=== PATIENT | female | born 2000 | race Caucasian/White ===

== ENCOUNTER 2020-04-05 09:30 | Emergency (ER) | payer BC, SELFPAY ==
[2020-04-05 09:41] VITALS: BP 116/72; PULSE 68; RESP 18; TEMP 36.8; O2SAT 99; BMI 36.6
--- NOTE | 2020-04-05 09:59 | ED_ITS ---
HPI - Abdominal Pain General: Chief Complaint: Abdominal Pain Stated Complaint: L UPPER AB PAIN Time Seen by Provider: 04/05/20 09:46 Source: patient Mode of arrival: ambulatory Limitations: no limitations History of Present Illness: HPI narrative: 20-year-old female patient presents to the emergency department with 3-day history of epigastric and right upper quadrant abdominal pain. She reports decreased appetite, eating makes pain worse. She states has tried [id number] use of Tums and Tylenol. Describes pain as a burning sensation. She also states 3-day history of diarrhea with nausea. Denies vomiting. Able to tolerate oral fluids. History of cholecystectomy. MD elicited complaint: abdominal pain Pertinent past history: other (Gallbladder disease) Onset (ago): day(s) (3) Pain Consistency: intermittent Location: Epigastric and RUQ Pain scale (0-10): 4 Quality: cramping and burning Radiation: RUQ Exacerbating factors: eating Relieving factors: nothing Associated Symptoms: Reports change in bowel habits (Diarrhea), diarrhea, heartburn and nausea; Denies belching, chills, dysuria, fever(s), hematochezia, hematemesis and vomiting Treatments prior to arrival: prescription analgesics and antacids Review of Systems General: Reports: 10 or more systems reviewed and unremarkable except in HPI and below Const: Denies: fever(s), chills or diaphoresis Eyes: Denies: blurry vision or eye redness ENMT: Denies: throat pain, dental pain or disequilibrium Card: Denies: chest pain, palpitations or irregular heart rhythm Resp: Denies: dyspnea, productive cough, non-productive cough or wheezing GI: Reports: abdominal pain, nausea, heartburn, diarrhea and change in bowel habits (Diarrhea); Denies: vomiting, hematemesis, belching or hematochezia : Denies: difficulty voiding or dysuria Musc: Denies: neck pain, back pain or joint pain Skin/Breast: Denies: rash or pruritus Neuro: Denies: headache(s), weakness in extremities or behavioral changes Psych: Denies: anxiety or depression Chris/Lymph: Denies: easy bruising PFSH ED PFSH: Surgical History (Updated 04/05/20 @ 10:02 by GRIS Long) History of cholecystectomy Physical Exam Const: COMMON NORMALS: no acute distress, patient oriented x3, healthy appearing, alert and well nourished EXAM LIMITATIONS: no altered mental status and no physical limitations GENERAL APPEARANCE: cooperative, comfortable, well kempt, well developed and well hydrated; not anxious and not ill appearing NUTRITIONAL APPEARANCE: overweight ORIENTATION/CONSCIOUSNESS: Yes awake, Yes oriented to person, Yes oriented to place and Yes oriented to time HENMT: COMMON NORMALS: normocephalic, atraumatic, Normal external nose present and moist oral mucous membranes HEAD & SCALP: normal to inspection, normocephalic and atraumatic FACE & SINUS: normal facial exam and face symmetric NOSE: Normal external nose present and No nasal polyps present MOUTH: Normal oral and palatal mucosa present and tongue normal THROAT: posterior oropharynx normal and uvula midline Eye: COMMON NORMALS: Equal, round and reactive pupils present and EOMs intact bilaterally GENERAL EYE: appearance normal, both eyes and all related structures PUPIL: Yes Equal, round and reactive pupils present Neck/C-Spine: COMMON NORMALS: full ROM, no lymphadenopathy and supple GENERAL: Yes normal visual inspection and Yes trachea midline CERVICAL SPINE: Yes cervical ROM normal Lymph: LYMPHATIC: no lymphadenopathy noted Chest: COMMONS NORMALS: normal inspection of the chest and normal palpation of entire chest wall Resp: COMMON NORMALS: normal respiratory effort, No retractions, No use of accessory muscles and clear to auscultation bilaterally EFFORT & INSPECTION: Yes able to speak in complete sentences, No labored, No Actively coughing and No retractions AUSCULTATION: clear to auscultation bilaterally, no wheezes and lung sounds not diminished Cardio: COMMON NORMALS: regular rate, regular rhythm, S1 normal heart sound present and S2 normal heart sound present RATE: regular rate RHYTHM: regular rhythm HEART SOUNDS: S1 normal heart sound present and S2 normal heart sound present GI: COMMON NORMALS: Normal to inspection, nondistended, normoactive bowel sounds present and Soft to palpation INSPECTION: Yes normal to inspection, No abdominal wall ecchymosis, No abdominal distension, No incision, Yes central obesity and No GI erythema present AUSCULTATION: Yes normoactive bowel sounds PALPATION: Yes Soft to palpation and Yes Tenderness to palpation present (GI) Details: RUQ and other (Mid epigastric) : COMMON NORMALS: Yes no CVA tenderness BLADDER/KIDNEY EXAM: Yes no CVA tenderness Back/Pelvis: COMMON NORMALS: no CVA tenderness and thoracic and lumbar spine normal to inspection Extremity: COMMON NORMALS: normal to inspection and capillary refill normal Neuro: COMMON NORMALS: patient oriented x3 and no focal motor deficits SENSORIUM/ORIENTATION: Yes alert, Yes oriented to person, Yes oriented to place and Yes oriented to time Psych: COMMON NORMALS: mental status grossly normal, Normal thought process present and cooperative APPEARANCE: Yes well kempt ACTIVITY/MOTOR BEHAVIOR: Yes appropriate eye contact THOUGHT PROCESS: Normal thought process present Skin: COMMON NORMALS: no rashes or lesions noted and turgor normal GENERAL SKIN EXAM: no rashes or lesions noted and turgor normal Course Vital Signs: Vital signs: Vital Signs Temperature 98.2 F 04/05/20 09:41 Pulse Rate 68 04/05/20 10:33 Respiratory Rate 18 04/05/20 10:33 Blood Pressure 108/57 04/05/20 10:33 Pulse Oximetry 99 04/05/20 10:33 MDM - Abdominal Pain MDM Narrative: Medical decision making narrative: 20-year-old female patient presents to the emergency department with complaints of abdominal pain x3 days. She reports burning sensation in the epigastric and right upper quadrant, gallbladder right upper quadrant negative for acute etiology. She received Mylanta and Zofran during her stay in the ED. Reports pain resolved, nausea resolved, able to tolerate p.o. fluids here in the ED. White blood count mar ginally elevated, 13.8 thousand. Chemistry unremarkable, lipase normal, urinalysis with positive leukoesterase bacteria and blood. Will treat for urinary tract infection, patient advised to follow-up with her primary care provider next week due to fatty liver disease that was appreciated on right upper quadrant ultrasound today. She was also counseled to return to the emergency department she developed worsening abdominal pain, vomiting despite use of Zofran, verbalized understanding and would like to go home since feeling better. Differential Diagnosis: Differential diagnosis abdominal pain: Likely abdominal pain and small bowel obstruction Lab Data: Labs: Lab Results 04/05/20 04/05/20 04/05/20 Range/Units 09:54 09:54 10:24 WBC 13.4 H (4.0-10.0) 10^3/ uL RBC 4.80 (4.1-5.3) 10^6/u L Hgb 13.9 (11.5-15.3) g/dL Hct 43.2 (37.0-47.0) % MCV 90.0 (81-99) fL MCH 29.0 (28.0-34.0) pg MCHC 32.2 (30.0-36.0) g/dL RDW 12.2 (12.1-15.1) % Plt Count 294 (130-400) 10^3/c mm MPV 9.6 (7.4-10.4) fL Neut % (Auto) 70.6 % Lymph % (Auto) 24.1 % [place] % (Auto) 3.6 % Eos % (Auto) 0.9 % Baso % (Auto) 0.4 % Neut # (Auto) 9.49 H (1.8-7.7) 10^3/u L Lymph # (Auto) 3.2 (0.8-4.8) 10^3/u L [place] # (Auto) 0.5 (0.2-0.9) 10^3/u L Eos # (Auto) 0.1 (0.0-0.8) 10^3/u L Baso # (Auto) 0.1 (0.0-0.1) 10^3/u L Nucleated RBC % (a uto) 0 % Nucleated RBCs # 0.0 /100WBC Sodium (136-145) mmol/L Potassium (3.5-5.1) mmol/L Chloride (98-107) mmol/L Carbon Dioxide (22-29) mmol/L Anion Gap (5-19) BUN (6-20) mg/dL Creatinine (0.5-0.9) mg/dL GFR Calculation (90-130) mL/min Glucose (65-115) mg/dL Calculated Osmolal ity (285-295) mOsm/k g Calcium (8.5-10.5) mg/dL Total Bilirubin (0.15-1.2) mg/dL AST (0-32) U/L ALT (0-33) U/L Alkaline Phosphata se (35-105) IU/L Total Protein (6.6-8.7) g/dL Albumin (3.5-5.2) g/dL Globulin (1.3-4.6) g/dL Lipase (13-60) U/L Urine Color Yellow (Yellow) Urine Appearance Cloudy (CLEAR) Urine pH 6 (5-7) Ur Specific Gravit y 1.005 (1.005-1.030) Urine Protein Neg (Negative) Urine Glucose (UA) Norm (Normal) Urine Ketones Negative (Negative) Urine Blood 3+ H (Negative) Urine Nitrate Negative (Negative) Urine Bilirubin Neg (Negative) Urine Urobilinogen Norm (Negative) mg/dL Ur Leukocyte Mohini ase 1+ H (Negative) Urine RBC 0-4 H (0-2) /hpf Urine WBC 0-4 H (0-5) /hpf Ur Squamous Epith Cells 10-15 H (0-5) /hpf Amorphous Sediment Not Reportable Urine Bacteria 1+ H (NONE) /hpf Urine HCG, Qual Negative (Negative) 04/05/20 Range/Units 10:24 WBC (4.0-10.0) 10^3/ uL RBC (4.1-5.3) 10^6/u L Hgb (11.5-15.3) g/dL Hct (37.0-47.0) % MCV (81-99) fL MCH (28.0-34.0) pg MCHC (30.0-36.0) g/dL RDW (12.1-15.1) % Plt Count (130-400) 10^3/c mm MPV (7.4-10.4) fL Neut % (Auto) % Lymph % (Auto) % [place] % (Auto) % Eos % (Auto) % Baso % (Auto) % Neut # (Auto) (1.8-7.7) 10^3/u L Lymph # (Auto) (0.8-4.8) 10^3/u L [place] # (Auto) (0.2-0.9) 10^3/u L Eos # (Auto) (0.0-0.8) 10^3/u L Baso # (Auto) (0.0-0.1) 10^3/u L Nucleated RBC % (a uto) % Nucleated RBCs # /100WBC Sodium 138 (136-145) mmol/L Potassium 4.0 (3.5-5.1) mmol/L Chloride 105 (98-107) mmol/L Carbon Dioxide 26 (22-29) mmol/L Anion Gap 11.0 (5-19) BUN 10 (6-20) mg/dL Creatinine 0.7 (0.5-0.9) mg/dL GFR Calculation 105.6 (90-130) mL/min Glucose 99 (65-115) mg/dL Calculated Osmolal ity 285 (285-295) mOsm/k g Calcium 9.7 (8.5-10.5) mg/dL Total Bilirubin 0.3 (0.15-1.2) mg/dL AST 15 (0-32) U/L ALT 13 (0-33) U/L Alkaline Phosphata se 81 (35-105) IU/L Total Protein 6.9 (6.6-8.7) g/dL Albumin 4.3 (3.5-5.2) g/dL Globulin 2.6 (1.3-4.6) g/dL Lipase 34 (13-60) U/L Urine Color (Yellow) Urine Appearance (CLEAR) Urine pH (5-7) Ur Specific Gravit y (1.005-1.030) Urine Protein (Negative) Urine Glucose (UA) (Normal) Urine Ketones (Negative) Urine Blood (Negative) Urine Nitrate (Negative) Urine Bilirubin (Negative) Urine Urobilinogen (Negative) mg/dL Ur Leukocyte Mohini ase (Negative) Urine RBC (0-2) /hpf Urine WBC (0-5) /hpf Ur Squamous Epith Cells (0-5) /hpf Amorphous Sediment Urine Bacteria (NONE) /hpf Urine HCG, Qual (Negative) Imaging Data ^: US: Radiologist's impression: [address] [address] Ultrasound Report Signed Patient: WHITNEY GAUTHIER Unit #: [id number] : 2000 Age/Sex: 20 / F ADM Date: 04/05/20 Loc: ER Room/Bed: Attending Dr: Ordering Provider/Ordering MD: Andreia Pérez Date of Service: 04/05/20 Procedure(s): US abdomen limited 55767 Accession Number(s): [id number] Report Number: [id number] PROCEDURE INFORMATION: Exam: US Abdomen, Limited; Right Upper Quadrant Exam date and time: 04/05/2020 11:10 AM Age: 20 years old Clinical indication: Abdominal pain; Prior surgery; Surgery date: 6+ months; Surgery type: Cholecystectomy; Additional info: Ruq - ruq pain TECHNIQUE: Imaging protocol: US abdomen. Real time ultrasound with image documentation. Limited exam focused on the right upper quadrant. COMPARISON: No relevant prior studies available. FINDINGS: Liver: There is increased echogenicity of the liver consistent with fatty liver. No liver masses are seen. Gallbladder: Cholecystectomy. Common bile duct: Normal. No stones. No dilation. Pancreas: Most of the pancreas is obscured by bowel but the visualized portions are unremarkable. Right kidney: Normal. No mass. No hydronephrosis. Aorta: The abdominal aorta and inferior vena cava appear normal. US/US abdomen limited [id number] IMPRESSION: 1. Cholecystectomy. Normal bile ducts. 2. Fatty liver. Dictated By: Kulwinder Johnson Signed By: Kulwinder Johnson Signed Date/Time: 04/05/20 1204 DD/ 1203 Discharge Plan Discharge Patient Disposition: Home Clinical Impression: Fatty liver Gastritis Qualifiers: Gastritis type: unspecified gastritis Chronicity: acute Gastritis bleeding: without bleeding Qualified Code(s): K29.00 - Acute gastritis without bleeding Abdominal pain Qualifiers: Abdominal location: right upper quadrant Qualified Code(s): R10.11 - Right upper quadrant pain UTI (urinary tract infection) Qualifiers: Urinary tract infection type: acute cystitis Hematuria presence: with hematuria Qualified Code(s): N30.01 - Acute cystitis with hematuria Condition: Stable Prescriptions: New Zofran 4 mg tablet 4 mg PO Q4H 5 Days Qty: 14 RF: 0 Pepcid 20 mg tablet 20 mg PO BID Qty: 20 RF: 0 cefdinir 300 mg capsule 300 mg PO BID 7 Days Qty: 14 RF: 0 Discharge Orders: Discharge ED (Routine); Ordered 04/05/20 Ordered By: Andreia Pérez Discharge Diet: Advance as tolerated and Clear Liquid Discharge Activity: Limit activity as instructed Patient Instructions: Gastritis (ED), Urinary Tract Infection in Women (ED), Abdominal Pain (ED) Activity Restrictions/Additional Instructions: return to the Emergency department if you experience continued nausea and vomiting despite use of Zofran or if abdominal pain increases/worsens May continue TUMS or Mylanta as needed for burning sensation Follow-up with your primary care provider next week for emergency room visit follow-up. Clear liquid diet for the first 24 hours recommended, then advance to bland diet such as crackers, chicken noodle soup, avoid fried fatty greasy spicy foods for the next 72 hours or until symptoms improved Drink plenty of fluids Take antibiotics until all gone Coding Level of Care Code ED Hand Sample Maker for Jorge Jackson Exam Comprehensive
[2020-04-05] MEDS: ondansetron 4 MG Tablet PO (10:17)
[2020-04-05] MEDS: alum-mag-hydroxide-sime 30 mL UDC PO (10:17)
[2020-04-05 10:26] LABS: Add Urine Microscopic? YES; Bacteria Urine 1+ /hpf; Bilirubin Urine Neg (Negative); Blood Urine 3+ (Negative); Glucose Urine UA Norm (Normal); Leukocyte Esterase Urine 1+ (Negative); Nitrate Urine Negative (Negative); Protein Urine Neg (Negative); RBC Urine 0-4 /hpf (0-2); Specific Gravity, Urine 1.005 (1.005-1.030); Urine Appearance Cloudy (CLEAR); Urine Color Yellow (Yellow); Urobilinogen Urine Norm (Negative); WBC Urine 0-4 /hpf (0-5); pH Urine 6 (5-7)
[2020-04-05 10:33] VITALS: BP 108/57; PULSE 68; RESP 18; O2SAT 99
[2020-04-05 10:35] LABS: Ketones Urine Negative (Negative)
[2020-04-05 10:39] LABS: Basophils # 0.1 10^3/uL (0.0-0.1); Basophils % 0.4 %; Eosinophils # 0.1 10^3/uL (0.0-0.8); Eosinophils % 0.9 %; Hematocrit 43.2 % (37.0-47.0); Hemoglobin 13.9 g/dL (11.5-15.3); Lymphocytes # 3.2 10^3/uL (0.8-4.8); Lymphocytes % 24.1 %; Mean Corpuscular HGB Conc 32.2 g/dL (30.0-36.0); Mean Platelet Volume 9.6 fL (7.4-10.4); Monocytes # 0.5 10^3/uL (0.2-0.9); Monocytes % 3.6 %; Neutrophils # 9.49 10^3/uL (1.8-7.7); Neutrophils % 70.6 %; Nucleated Red Blood Cells % 0 %; Platelet Count 294 10^3/cmm (130-400); Red Cell Distribution Width 12.2 % (12.1-15.1); White Blood Count 13.4 10^3/uL (4.0-10.0)
--- NOTE | 2020-04-05 10:46 | USR_ITS ---
PROCEDURE INFORMATION: Exam: US Abdomen, Limited; Right Upper Quadrant Exam date and time: 04/05/2020 11:10 AM Age: 20 years old Clinical indication: Abdominal pain; Prior surgery; Surgery date: 6+ months; Surgery type: Cholecystectomy; Additional info: Ruq - ruq pain TECHNIQUE: Imaging protocol: US abdomen. Real time ultrasound with image documentation. Limited exam focused on the right upper quadrant. COMPARISON: No relevant prior studies available. FINDINGS: Liver: There is increased echogenicity of the liver consistent with fatty liver. No liver masses are seen. Gallbladder: Cholecystectomy. Common bile duct: Normal. No stones. No dilation. Pancreas: Most of the pancreas is obscured by bowel but the visualized portions are unremarkable. Right kidney: Normal. No mass. No hydronephrosis. Aorta: The abdominal aorta and inferior vena cava appear normal. US/US abdomen limited [id number] IMPRESSION: 1. Cholecystectomy. Normal bile ducts. 2. Fatty liver.
[2020-04-05 11:02] LABS: Alanine Aminotransferase 13 U/L (0-33); Albumin Level 4.3 g/dL (3.5-5.2); Alkaline Phosphatase 81 IU/L (35-105); Aspartate Amino Transferase 15 U/L (0-32); Blood Urea Nitrogen 10 mg/dL (6-20); Calcium 9.7 mg/dL (8.5-10.5); Carbon Dioxide 26 mmol/L (22-29); Chloride 105 mmol/L (98-107); Globulin 2.6 g/dL (1.3-4.6); Glomerular Filtration Rate 105.6 mL/min (90-130); Glucose 99 mg/dL (65-115); Lipase 34 U/L (13-60); Osmolality Calculated 285 mOsm/kg (285-295); Sodium 138 mmol/L (136-145); Total Bilirubin 0.3 mg/dL (0.15-1.2); Total Protein 6.9 g/dL (6.6-8.7)
[2020-04-05 12:17] VITALS: BP 112/62; PULSE 57; RESP 16; O2SAT 97
== END 2020-04-05 12:17 | disposition home or self-care (01) ==
PROVIDERS: Emergency Provider Nurse Practitioner Family
DX: K29.00 Acute gastritis without bleeding (principal); R10.11 Right upper quadrant pain; N30.01 Acute cystitis with hematuria; K76.0 Fatty (change of) liver, not elsewhere classified
CPT/HCPCS: 12345; 76705; 80053; 81001; 81025; 83690; 85025; 99281; 99283; Q0162

== ENCOUNTER → 2020-05-23 08:55 | Outpatient (BNVA) | payer BC, SELFPAY | PROVIDERS: Visit Provider Nurse Practitioner Women's Health | DX: N92.6 Irregular menstruation, unspecified (principal); Z30.017 Encounter for initial prescription of implantable subdermal contraceptive; E28.2 Polycystic ovarian syndrome | CPT/HCPCS: 84702 ==

== ENCOUNTER 2020-08-16 17:31 | Emergency (ER) | payer BC, SELFPAY ==
[2020-08-16 17:42] VITALS: BP 132/85; PULSE 94; RESP 17; TEMP 36.2; O2SAT 99; BMI 36.3
--- NOTE | 2020-08-16 18:00 | W.ED.GENADLT ---
HPI - General Adult General: Chief complaint: Abdominal Pain Stated complaint: LOWER ABD PAIN UNABLE TO KEEP DOWN ANYTHING Time Seen by Provider: 08/16/20 17:51 History of Present Illness: HPI narrative: Patient says she has been sick with nausea and vomiting last 3 days. Not able to keep much down. Then she says she has had some tenderness in her abdomen today. Which she did not have the last 2 days. She denies any vaginal discharge or other problems. She did start her menses today. Denies fever. Said her dougie had a history of having infections mainly yeast and that is been draining a bit more the last couple days. MD complaint: Nausea and vomiting Onset (ago): day(s) Location: abdomen Severity: mild Associated symptoms: Reports nausea and vomiting; Deny chest pain, dyspnea, headache(s) or rash Review of Systems Const: Denies: fever(s), chills or body aches Eyes: Denies: change in vision or blurry vision ENMT: Denies: throat pain or nasal congestion Card: Denies: chest pain or dyspnea on exertion Resp: Denies: dyspnea, productive cough or non-productive cough GI: Reports: nausea and vomiting Musc: Denies: extremity pain Skin/Breast: Reports: other (Says dougie has had some drainage); Denies: rash Neuro: Denies: headache(s) Psych: Denies: anxiety or depression Chris/Lymph: Denies: easy bruising PFSH ED PFSH: Medical History Chiari malformation GERD (gastroesophageal reflux disease) Navel cellulitis PCOS (polycystic ovarian syndrome) Surgical History History of cholecystectomy Status post brain surgery removed piece of the skull to help the chiari Family History Denies family history of Colon cancer Ovarian cancer Diabetes Heart disease Hypercholesteremia Breast cancer Hypertension Uterine cancer Thyroid disease Stroke Physical Exam Const: COMMON NORMALS: no acute distress, average body habitus and patient oriented x3 HENMT: COMMON NORMALS: normocephalic HEAD & SCALP: normal to inspection and normocephalic FACE & SINUS: normal facial exam Eye: COMMON NORMALS: conjunctivae normal GENERAL EYE: appearance normal, both eyes and all related structures CONJUNCTIVA: Yes conjunctivae normal Neck/C-Spine: COMMON NORMALS: no JVD Chest: COMMONS NORMALS: normal inspection of the chest Resp: COMMON NORMALS: normal respiratory effort and clear to auscultation bilaterally AUSCULTATION: clear to auscultation bilaterally Cardio: COMMON NORMALS: no JVD, regular rate and regular rhythm RATE: regular rate RHYTHM: regular rhythm GI: INSPECTION: Yes normal to inspection AUSCULTATION: Yes normoactive bowel sounds PALPATION: Yes Tenderness to palpation present (GI) Details: RLQ, RUQ and other (Periumbilical) Extremity: COMMON NORMALS: normal to inspection and full ROM Neuro: COMMON NORMALS: patient oriented x3 Skin: NARRATIVE SKIN EXAM: Bellybutton then having current drainage slight redness can, is slightly tender Course Vital Signs: Vital signs: Vital Signs Temperature 97.2 F L 08/16/20 17:42 Pulse Rate 73 08/16/20 20:36 Respiratory Rate 17 08/16/20 17:42 Blood Pressure 135/58 08/16/20 20:36 Pulse Oximetry 100 08/16/20 20:36 MDM - General Adult MDM Narrative: Medical decision making narrative: CT report included did not show any significant findings except mild cellulitis around the bellybutton and a right ovarian cyst which is consistent with the pain she has today. She said that her bellybutton cellulitis drainage problems occurred after she had her gallbladder removed 5 years ago and its happens intermittently. Patient instructed to contact surgeons here at [facility] and see about get appointment to have that evaluated Lab Data: Labs: Lab Results 08/16/20 08/16/20 08/16/20 Range/Units 18:28 18:28 18:31 WBC 13.3 H (4.0-10.0) 10^3/ uL RBC 4.92 (4.1-5.3) 10^6/u L Hgb 14.4 (11.5-15.3) g/dL Hct 43.4 (37.0-47.0) % MCV 88.2 (81-99) fL MCH 29.3 (28.0-34.0) pg MCHC 33.2 (30.0-36.0) g/dL RDW 11.9 L (12.1-15.1) % Plt Count 301 (130-400) 10^3/c mm MPV 9.5 (7.4-10.4) fL Neut % (Auto) 56.2 % Lymph % (Auto) 36.7 % [place] % (Auto) 5.5 % Eos % (Auto) 0.8 % Baso % (Auto) 0.6 % Neut # (Auto) 7.47 (1.8-7.7) 10^3/u L Lymph # (Auto) 4.9 H (0.8-4.8) 10^3/u L [place] # (Auto) 0.7 (0.2-0.9) 10^3/u L Eos # (Auto) 0.1 (0.0-0.8) 10^3/u L Baso # (Auto) 0.1 (0.0-0.1) 10^3/u L Nucleated RBC % (a uto) 0 % Nucleated RBCs # 0.0 /100WBC Sodium 137 (136-145) mmol/L Potassium 3.8 (3.5-5.1) mmol/L Chloride 102 (98-107) mmol/L Carbon Dioxide 24 (22-29) mmol/L Anion Gap 14.8 (5-19) BUN 12 (6-20) mg/dL Creatinine 0.7 (0.5-0.9) mg/dL GFR Calculation 105.6 (90-130) mL/min Glucose 83 (65-115) mg/dL Calculated Osmolal ity 283 L (285-295) mOsm/k g Calcium 8.6 (8.5-10.5) mg/dL Total Bilirubin 0.6 (0.15-1.2) mg/dL AST 16 (0-32) U/L ALT 14 (0-33) U/L Alkaline Phosphata se 76 (35-105) IU/L Total Protein 7.2 (6.6-8.7) g/dL Albumin 4.3 (3.5-5.2) g/dL Globulin 2.9 (1.3-4.6) g/dL Lipase 25 (13-60) U/L HCG, Qual Negative (Negative) Urine Color (Yellow) Urine Appearance (CLEAR) Urine pH (5-7) Ur Specific Gravit y (1.005-1.030) Urine Protein (Negative) Urine Glucose (UA) (Normal) Urine Ketones (Negative) Urine Blood (Negative) Urine Nitrate (Negative) Urine Bilirubin (Negative) Urine Urobilinogen (Negative) mg/dL Ur Leukocyte Mohini ase (Negative) Urine RBC (0-2) /hpf Urine WBC (0-5) /hpf Ur Squamous Epith Cells (0-5) /hpf Amorphous Sediment /hpf Urine Bacteria (NONE) /hpf 08/16/20 Range/Units 18:31 WBC (4.0-10.0) 10^3/ uL RBC (4.1-5.3) 10^6/u L Hgb (11.5-15.3) g/dL Hct (37.0-47.0) % MCV (81-99) fL MCH (28.0-34.0) pg MCHC (30.0-36.0) g/dL RDW (12.1-15.1) % Plt Count (130-400) 10^3/c mm MPV (7.4-10.4) fL Neut % (Auto) % Lymph % (Auto) % [place] % (Auto) % Eos % (Auto) % Baso % (Auto) % Neut # (Auto) (1.8-7.7) 10^3/u L Lymph # (Auto) (0.8-4.8) 10^3/u L [place] # (Auto) (0.2-0.9) 10^3/u L Eos # (Auto) (0.0-0.8) 10^3/u L Baso # (Auto) (0.0-0.1) 10^3/u L Nucleated RBC % (a uto) % Nucleated RBCs # /100WBC Sodium (136-145) mmol/L Potassium (3.5-5.1) mmol/L Chloride (98-107) mmol/L Carbon Dioxide (22-29) mmol/L Anion Gap (5-19) BUN (6-20) mg/dL Creatinine (0.5-0.9) mg/dL GFR Calculation (90-130) mL/min Glucose (65-115) mg/dL Calculated Osmolal ity (285-295) mOsm/k g Calcium (8.5-10.5) mg/dL Total Bilirubin (0.15-1.2) mg/dL AST (0-32) U/L ALT (0-33) U/L Alkaline Phosphata se (35-105) IU/L Total Protein (6.6-8.7) g/dL Albumin (3.5-5.2) g/dL Globulin (1.3-4.6) g/dL Lipase (13-60) U/L HCG, Qual (Negative) Urine Color Yellow (Yellow) Urine Appearance Sl hazy (CLEAR) Urine pH 5 (5-7) Ur Specific Gravit y 1.015 (1.005-1.030) Urine Protein Neg (Negative) Urine Glucose (UA) Norm (Normal) Urine Ketones 1+ H (Negative) Urine Blood 3+ H (Negative) Urine Nitrate Negative (Negative) Urine Bilirubin Neg (Negative) Urine Urobilinogen Norm (Negative) mg/dL Ur Leukocyte Mohini ase 1+ H (Negative) Urine RBC 15-25 H (0-2) /hpf Urine WBC 0-4 H (0-5) /hpf Ur Squamous Epith Cells 15-25 H (0-5) /hpf Amorphous Sediment 1+ /hpf Urine Bacteria 2+ H (NONE) /hpf Discharge Plan Discharge Patient Disposition: Home Clinical Impression: Navel cellulitis Ovarian cyst Qualifiers: Laterality: right Qualified Code(s): N83.201 - Unspecified ovarian cyst, right side Condition: Stable Prescriptions: New clindamycin HCl 300 mg capsule 300 mg PO Q8H 7 Days Qty: 21 RF: 0 Celebrex 100 mg capsule 100 mg PO BID Qty: 20 RF: 0 No Action pantoprazole [Protonix] 40 mg tablet,delayed release (DR/EC) 40 mg PO QAM 30 Days Qty: 30 RF: 2 Nexplanon 68 mg implant subdermal RF: 0 doxycycline hyclate 100 mg capsule 100 mg PO BID 7 Days Qty: 14 RF: 0 amoxicillin-pot clavulanate [Augmentin] 875-125 mg tablet 1 tab PO BID 7 Days Qty: 14 RF: 0 mupirocin 2 % ointment 1 applic topical DAILY 30 Days Qty: 15 RF: 0 medroxyprogesterone [Provera] 10 mg tablet 10 mg PO DAILY Qty: 10 RF: 0 Discharge Orders: Discharge ED (Routine); Ordered 08/16/20 Ordered By: Stevie Brunner Discharge Diet: Usual diet Discharge Activity: Increase activity as tolerated Activity Restrictions/Additional Instructions: Follow-up with medical provider as directed. Take medications as prescribed. Return to the ER or your medical provider if condition worsens. Please read and understand discharge instructions. If any questions ask please. Contact when the general surgeon shared over the [facility] and see back an appointment to have [facility]. Coding Level of Care Code ED Traffic Sign Erection Supervisor for Wendig Fwd Exam Comprehensive
[2020-08-16] MEDS: ketorolac 30 mg/mL INJ IVP (18:31)
[2020-08-16] MEDS: ondansetron 2 mg/ML SDV 2 mL 4 MG IVP (18:31)
[2020-08-16] MEDS: sodium chloride 0.9% 1,000 ML 999 ML IV (18:33)
[2020-08-16 18:38] LABS: Add Urine Microscopic? YES; Bilirubin Urine Neg (Negative); Blood Urine 3+ (Negative); Glucose Urine UA Norm (Normal); Ketones Urine 1+ (Negative); Leukocyte Esterase Urine 1+ (Negative); Nitrate Urine Negative (Negative); Protein Urine Neg (Negative); Specific Gravity, Urine 1.015 (1.005-1.030); Urine Appearance SL Hazy (CLEAR); Urine Color Yellow (Yellow); Urobilinogen Urine Norm (Negative); pH Urine 5 (5-7)
[2020-08-16 18:38] LABS: Basophils # 0.1 10^3/uL (0.0-0.1); Basophils % 0.6 %; Eosinophils # 0.1 10^3/uL (0.0-0.8); Eosinophils % 0.8 %; Hematocrit 43.4 % (37.0-47.0); Hemoglobin 14.4 g/dL (11.5-15.3); Lymphocytes # 4.9 10^3/uL (0.8-4.8); Lymphocytes % 36.7 %; Mean Corpuscular HGB Conc 33.2 g/dL (30.0-36.0); Mean Corpuscular Hemoglobin 29.3 pg (28.0-34.0); Mean Corpuscular Volume 88.2 fL (81-99); Mean Platelet Volume 9.5 fL (7.4-10.4); Monocytes # 0.7 10^3/uL (0.2-0.9); Monocytes % 5.5 %; Neutrophils # 7.47 10^3/uL (1.8-7.7); Neutrophils % 56.2 %; Nucleated Red Blood Cells % 0 %; Platelet Count 301 10^3/cmm (130-400); Red Blood Count 4.92 10^6/uL (4.1-5.3); Red Cell Distribution Width 11.9 % (12.1-15.1); White Blood Count 13.3 10^3/uL (4.0-10.0)
[2020-08-16 18:41] LABS: HCG Qualitative Urine. Negative (Negative)
[2020-08-16 18:43] LABS: RBC Urine 15-25 /hpf (0-2); Squamous Epithelial Cell Urine 15-25 /hpf (0-5); WBC Urine 0-4 /hpf (0-5)
[2020-08-16 18:44] LABS: Add Urine Culture? No; Amorphous Sediment Urine 1+ /hpf; Bacteria Urine 2+ /hpf
[2020-08-16 18:46] VITALS: BP 147/79; PULSE 75; O2SAT 99
[2020-08-16 18:59] LABS: Alanine Aminotransferase 14 U/L (0-33); Albumin Level 4.3 g/dL (3.5-5.2); Alkaline Phosphatase 76 IU/L (35-105); Anion Gap 14.8 (5-19); Aspartate Amino Transferase 16 U/L (0-32); Blood Urea Nitrogen 12 mg/dL (6-20); Calcium 8.6 mg/dL (8.5-10.5); Carbon Dioxide 24 mmol/L (22-29); Chloride 102 mmol/L (98-107); Globulin 2.9 g/dL (1.3-4.6); Glomerular Filtration Rate 105.6 mL/min (90-130); Glucose 83 mg/dL (65-115); Lipase 25 U/L (13-60); Osmolality Calculated 283 mOsm/kg (285-295); Potassium 3.8 mmol/L (3.5-5.1); Sodium 137 mmol/L (136-145); Total Bilirubin 0.6 mg/dL (0.15-1.2); Total Protein 7.2 g/dL (6.6-8.7)
--- NOTE | 2020-08-16 19:01 | CTR_ITS ---
PROCEDURE INFORMATION: Exam: CT Abdomen And Pelvis With Contrast Exam date and time: 08/16/2020 7:10 PM Age: 20 years old Clinical indication: Nausea and vomiting; Prior surgery; Surgery date: 6+ months; Surgery type: Gb; Patient HX: C/O n/v and infected bellybutton; Additional info: Rlq pain, n/v, infected belly button TECHNIQUE: Imaging protocol: Computed tomography of the abdomen and pelvis with contrast. Radiation optimization: All CT scans at this facility use at least one of these dose optimization techniques: automated exposure control; mA and/or kV adjustment per patient size (includes targeted exams where dose is matched to clinical indication); or iterative reconstruction. Contrast material: OMNI 300; Contrast volume: 95 ml; Contrast route: INTRAVENOUS (IV); COMPARISON: abdomen limited [id number] 04/05/2020 11:18 AM RADIATION DOSE METRICS: Total DLP (mGy-cm): 1628.23 FINDINGS: Lungs: A 6 mm nodule is present in the left lower lobe. The visualized lung bases are otherwise clear. Heart: The heart is normal in size. Liver: Normal. No mass. Gallbladder and bile ducts: The gallbladder has been removed. No biliary ductal dilatation. Pancreas: Normal. No ductal dilation. Spleen: Normal. No splenomegaly. Adrenal glands: Normal. No mass. Kidneys and ureters: Normal. No hydronephrosis. Stomach and bowel: Unremarkable. No obstruction. No mucosal thickening. Appendix: The appendix is normal. Intraperitoneal space: Unremarkable. No free air. No significant fluid collection. Vasculature: Unremarkable. No abdominal aortic aneurysm. Lymph nodes: Unremarkable. No enlarged lymph nodes. Urinary bladder: Unremarkable as visualized. Reproductive: The uterus and ovaries appear normal. A 3.9 cm right ovarian cyst is present. Bones/joints: Unremarkable. No acute fracture. Soft tissues: Mild skin thickening is present at the umbilicus. No abscess is visualized. CT/CT abdomen pelvis w con* [id number] IMPRESSION: 1. Possible mild cellulitis at the umbilicus. No abscess is seen. 2. No acute abnormality is seen in the abdomen. The appendix is normal. A 3.9 cm right ovarian cyst is present. 3. Indeterminate left lower lobe 6 mm nodule. Radiation Dose CTDIVOL = (mGy): DLP = 1628.23 (mGy-cm)
[2020-08-16] MEDS: iohexol 300 mg/mL 100 mL Btl IV (19:30)
[2020-08-16] MEDS: clindamycin 150 mg Capsule 300 MG PO (20:29)
[2020-08-16] MEDS: TRAMadol 50 mg Tablet PO (20:29)
[2020-08-16 20:36] VITALS: BP 135/58; PULSE 73; O2SAT 100
== END 2020-08-16 20:37 | disposition home or self-care (01) ==
PROVIDERS: Emergency Provider Nurse Practitioner Family
DX: L03.316 Cellulitis of umbilicus (principal); N83.201 Unspecified ovarian cyst, right side
CPT/HCPCS: 74177; 80053; 81001; 81025; 83690; 85025; 96361; 96374; 96375; 99284; J1885; J2405; J7030; Q9967

== ENCOUNTER → 2021-02-17 11:43 | Outpatient (BNVA) | payer BC, SELFPAY | PROVIDERS: PCP Nurse Practitioner Family; Visit Provider Nurse Practitioner Family | DX: L03.316 Cellulitis of umbilicus (principal) | CPT/HCPCS: 87070 ==

== ENCOUNTER → 2021-03-24 00:01 | Outpatient (BNVA) | payer BC, OTHER, SELFPAY | PROVIDERS: PCP Nurse Practitioner Family; Visit Provider Nurse Practitioner Family | DX: L03.316 Cellulitis of umbilicus (principal); B37.2 Candidiasis of skin and nail | CPT/HCPCS: 87070; 87077; 87184 ==

== ENCOUNTER → 2021-04-30 16:59 | Outpatient (BNVA) | payer BC, SELFPAY | PROVIDERS: PCP Nurse Practitioner Family; Visit Provider Nurse Practitioner | DX: Z20.822 Contact with and (suspected) exposure to COVID-19 (principal) | CPT/HCPCS: 87635 ==

== ENCOUNTER → 2021-07-02 15:40 | Outpatient (BNVA) | payer BC, SELFPAY | PROVIDERS: PCP Nurse Practitioner Family; Visit Provider Internal Medicine | DX: R11.2 Nausea with vomiting, unspecified (principal); Z01.818 Encounter for other preprocedural examination; Z20.822 Contact with and (suspected) exposure to COVID-19 | CPT/HCPCS: 87635 ==

== ENCOUNTER 2021-07-06 08:39 | Day surgery (SDC) | payer BC, SELFPAY ==
[2021-07-02 14:13] VITALS: BMI 31.9
--- NOTE | 2021-07-06 07:14 | P.HP_ITS ---
Same Day Surgery H&P Indication for Procedure/HPI DATE OF PROCEDURE: July 06, 2021 CHIEF COMPLAINT/INDICATIONFOR SURGICAL PROCEDURE: Nausea and vomiting nausea and vomiting PREOP DIAGNOSIS: Nausea and vomiting nausea and vomiting PLANNED PROCEDURE: Operation Date: 07/06/21 08:00 Proposed Procedures p EGD 93484/r11.02(Not Applicable) - Benny Jacobson MD Medications/Allergies* Home Medications Medication Instructions Recorded Confirmed Type dicyclomine 20 mg tablet 20 mg PO DAILY 07/02/21 07/02/21 History Allergies/Adverse Reactions Allergy/AdvReac Type Severity Reaction Status Date / Time No Known Allergies Allergy Verified 06/24/21 13:54 Pertinent History/Comorbid Conditions* Medical History (Updated 06/24/21 @ 14:10 by Benny Jacobson MD) Cellulitis, umbilical Chiari malformation Contact dermatitis Fatigue GERD (gastroesophageal reflux disease) Hypertension screen Medication management Navel cellulitis Oral herpes PCOS (polycystic ovarian syndrome) Vitamin D deficiency Yeast dermatitis Surgical History (Updated 05/23/20 @ 08:44 by Sophia Quach APN, GARCIA) History of cholecystectomy Status post brain surgery removed piece of the skull to help the chiari Family History (Updated 05/23/20 @ 07:51 by Gabriela Sheridan) Denies family history of Colon cancer Ovarian cancer Diabetes Heart disease Hypercholesteremia Breast cancer Hypertension Uterine cancer Thyroid disease Stroke Social History Smoking and tobacco status: current every day smoker Pertinent Exam Findings alert, oriented x 3, clear to auscultation bilaterally, regular rate & rhythm, operative site marked and procedure specific exam findings Recommendations Surgery/Procedure today Coding Level of Care Code Acute 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
--- NOTE | 2021-07-06 08:55 | P.ANESASSM_ITS ---
Pre-Anesthetic Assessment Height/Weight: Height 1.63 m Weight 84.368 kg Preop Diagnosis: Nausea and vomiting nausea and vomiting Operation Date: 07/06/21 08:00 Proposed Procedures p EGD 92133/r11.02(Not Applicable) - Benny Jacobson MD Familial anesthetic complications: None Was Beta Martin taken within 24 hours: N/A Was Clonidine taken within 24 hours: N/A Last intake: > 8hrs Social Tobacco and No alcohol Exam alert, oriented x 3, clear to auscultation bilaterally and regular rate & rhythm Airway Mallampati: Class II Dentition: full GI Gastroesophageal Reflux Disease Metabolic PCOS Neuropsych Seizure (4 years ago - d/t drinking) Chiari-malformation - s/p surgery Anesthetic Plan ASA status: 2 Anesthesia: MAC Medications/Allergies Home Medications Medication Instructions Recorded Confirmed Last Taken Type valacyclovir 1 gram tablet See Rx Instructions PO DAILY 30 02/10/21 07/02/21 Unknown Rx Days #30 tab dicyclomine 20 mg tablet 20 mg PO DAILY 07/02/21 07/02/21 Unknown History Allergies Allergy/AdvReac Type Severity Reaction Status Date / Time No Known Allergies Allergy Verified 06/24/21 13:54 [facility] Anesthesia Medical History Cellulitis, umbilical Chiari malformation Contact dermatitis Fatigue GERD (gastroesophageal reflux disease) Hypertension screen Medication management Navel cellulitis Oral herpes PCOS (polycystic ovarian syndrome) Vitamin D deficiency Yeast dermatitis Surgical History History of cholecystectomy Status post brain surgery removed piece of the skull to help the chiari Family History Denies family history of Colon cancer Ovarian cancer Diabetes Heart disease Hypercholesteremia Breast cancer Hypertension Uterine cancer Thyroid disease Stroke Social History Smoking and tobacco status: current every day smoker Female Reproductive History Date of last menstrual period: 06/23/21 Data Anesthesia Cardiac Studies: No Data to Display
[2021-07-06 09:14] VITALS: BP 132/89; PULSE 81; RESP 16; TEMP 36.1; O2SAT 98
[2021-07-06 09:18] LABS: OR HCG Qualitative Urine Negative (Negative)
[2021-07-06] MEDS: sodium chloride 0.9% 1,000 ML 30 ML IV (09:24)
[2021-07-06 09:59] VITALS: BP 114/62; PULSE 75; RESP 16; TEMP 36.1; O2SAT 97
--- NOTE | 2021-07-06 10:08 | ANE.PACU2 ---
Inpatient post-anesthesia follow up: Airway intact: Yes Vital signs: Temperature 97 F Pulse Rate 75 Respiratory Rate 16 Blood Pressure 114/62 Pulse Oximetry 97 Oxygen Delivery Me thod Room Air Oxygen Flow Rate Fraction of Inspir ed Oxygen Hydration adequate: Yes Nausea and vomiting: No Pain level: 1 Mental status: Baseline
[2021-07-06 10:14] VITALS: BP 117/75; PULSE 84; RESP 18; O2SAT 100
[2021-07-07 06:40] LABS: H. Pylori / CLO Test Negative
== END 2021-07-06 10:27 | disposition home or self-care (01) ==
PROVIDERS: Anesthesiology; PCP Nurse Practitioner Family; Visit Provider Internal Medicine
PROC: 0DJ08ZZ Inspection of Upper Intestinal Tract, Via Natural or Artificial Opening Endoscopic (ICD-10-PCS; CPT 43235; principal; 2021-07-06 08:00)
DX: R11.2 Nausea with vomiting, unspecified (principal); K21.9 Gastro-esophageal reflux disease without esophagitis; E28.2 Polycystic ovarian syndrome; F17.210 Nicotine dependence, cigarettes, uncomplicated; K29.70 Gastritis, unspecified, without bleeding
CPT/HCPCS: 43239; 84703; 87077; J2704; J7030

== ENCOUNTER → 2024-12-24 14:01 | Outpatient (BNVA) | payer BC, SELFPAY | PROVIDERS: PCP Nurse Practitioner Family; Visit Provider Orthopaedic Surgery | DX: M25.512 Pain in left shoulder (principal); S43.102A Unspecified dislocation of left acromioclavicular joint, initial encounter; V87.8XXA Person injured in other specified noncollision transport accidents involving motor vehicle (traffic), initial encounter | CPT/HCPCS: 73030 ==

== ENCOUNTER 2024-12-28 15:54 | Outpatient (CLI) | payer BC, SELFPAY ==
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
== END 2024-12-28 15:55 | disposition home or self-care (01) ==
LOC: RAD 15:57
PROVIDERS: PCP Nurse Practitioner Family; Visit Provider Orthopaedic Surgery
DX: M25.512 Pain in left shoulder (principal)
CPT/HCPCS: 73221